=== PATIENT | male | born 1990 | race Two or more races ===

== ENCOUNTER 2017-04-15 04:25 | Emergency (ER) | payer SELFPAY ==
[~2017-04-15] VITALS: Ht 162.6 cm; Wt 77.1 kg
[2017-04-15] MEDS ORDERED: LIDOCAINE 1% HCL (LOCAL ANESTH.) INJ 20ML MDV ONE (04:42)
[2017-04-15 05:09] VITALS: BP 137/91
[2017-04-15] MEDS ORDERED: TETANUS-DIPTH-ACEL PERTUSSIS 0.5ML SYRG IM ONE (05:30)
[2017-04-15] MEDS ORDERED: cefTRIAXone SOD 1,000 MG VL IM ONE (05:30)
[2017-04-15] MEDS ORDERED: ACETAMINOPHEN/CODEINE#3 (300/30mg) TAB PO ONE (05:30)
== END 2017-04-15 05:28 | disposition home or self-care (01) ==
LOC: ER 04:25
DX: S61.012A Laceration without foreign body of left thumb without damage to nail, initial encounter (principal); L03.012 Cellulitis of left finger; Z23 Encounter for immunization; W31.89XA Contact with other specified machinery, initial encounter; Y93.89 Activity, other specified; Y92.89 Other specified places as the place of occurrence of the external cause; Y99.8 Other external cause status
CPT/HCPCS: 90471; 90715; 96372; 99284; J0696; J2001; J7030

== ENCOUNTER 2021-02-02 00:54 | Emergency (ER) | payer SELFPAY ==
[~2021-02-02] VITALS: Ht 162.6 cm; Wt 81.6 kg
[2021-02-02 00:55] VITALS: BP 135/94
== END 2021-02-02 02:41 | disposition left against medical advice (07) ==
LOC: ER 00:56
DX: S61.214A Laceration without foreign body of right ring finger without damage to nail, initial encounter (principal); Z53.21 Procedure and treatment not carried out due to patient leaving prior to being seen by health care provider; W26.8XXA Contact with other sharp object(s), not elsewhere classified, initial encounter; Y93.89 Activity, other specified; Y92.89 Other specified places as the place of occurrence of the external cause; Y99.8 Other external cause status

== ENCOUNTER 2021-03-27 00:52 | Emergency (ER) | payer SELFPAY ==
[~2021-03-27] VITALS: Ht 162.6 cm; Wt 81.6 kg
[2021-03-27 00:54] VITALS: BP 144/80
== END 2021-03-27 03:39 | disposition left against medical advice (07) ==
LOC: ER 00:52
DX: R07.9 Chest pain, unspecified (principal); R11.0 Nausea; Z53.21 Procedure and treatment not carried out due to patient leaving prior to being seen by health care provider
CPT/HCPCS: 71045; 93005

== ENCOUNTER 2021-08-19 04:13 | Emergency (ER) | payer SELFPAY ==
[~2021-08-19] VITALS: Ht 167.6 cm; Wt 81.6 kg
[2021-08-19 04:14] VITALS: BP 135/87
== END 2021-08-19 05:57 | disposition left against medical advice (07) ==
LOC: ER 04:13
DX: R10.9 Unspecified abdominal pain (principal); R11.2 Nausea with vomiting, unspecified; Z53.21 Procedure and treatment not carried out due to patient leaving prior to being seen by health care provider

== ENCOUNTER 2023-04-02 20:36 | Emergency (ER) | payer MEDICAID, OTHER | END 2023-04-02 21:29 | disposition left against medical advice (07) | LOC: ER 20:36 | DX: S89.92XA Unspecified injury of left lower leg, initial encounter (principal); Z53.21 Procedure and treatment not carried out due to patient leaving prior to being seen by health care provider; X58.XXXA Exposure to other specified factors, initial encounter; Y93.89 Activity, other specified; Y92.89 Other specified places as the place of occurrence of the external cause; Y99.8 Other external cause status ==